=== PATIENT | male | born 1955 | race Caucasian/White ===

== ENCOUNTER 2016-11-08 19:56 | Emergency (ER) | payer SELFPAY ==
[~2016-11-08 19:56] MED LIST: NAPR-576 PO
[2016-11-08 19:57] VITALS: BP 150/100; PULSE 78; RESP 16; TEMP 98.6; O2SAT 96
== END 2016-11-08 20:56 | disposition left against medical advice (07) ==
LOC: NED 19:56
DX: S09.90XA Unspecified injury of head, initial encounter (principal); X58.XXXA Exposure to other specified factors, initial encounter
CPT/HCPCS: 99281